=== PATIENT | male | born 2000 | race Caucasian/White ===

== ENCOUNTER 2022-07-13 20:23 | Emergency (ER) | payer MEDICAID, SELFPAY ==
[2022-07-13 20:24] VITALS: BP 124/77; PULSE 100; RESP 16; TEMP 36.8; O2SAT 100; BMI 21.9
--- NOTE | 2022-07-13 20:38 | CT_ITS ---
INDICATION: Pain EXAMINATION: CT ABDOMEN AND PELVIS WITHOUT CONTRAST - CT Abdomen And Pelvis W/O Contrast Injection TECHNIQUE: Helically acquired images were obtained of the abdomen and pelvis without oral or IV contrast. A radiation dose optimization technique was used for this scan. IV Contrast dosage and agent: None. Oral contrast: None. RADIATION DOSAGE (If Supplied By Facility): CTDIvol = ( 6.13 ) mGy, DLP = ( 332.51 ) mGycm COMPARISON: No relevant prior examinations for comparison FINDINGS: LOWER CHEST: Lung bases are clear. No cardiomegaly or pericardial effusion. LIVER: The liver has normal configuration and density given the limitation of noncontrast exam. No focal mass. GALLBLADDER AND BILIARY TREE: No calcified gallstones. No gallbladder distension or wall edema. No intra- or extrahepatic biliary ductal dilation. PANCREAS: No focal cystic or solid mass. SPLEEN: Normal size without focal cystic or solid mass. ADRENAL GLANDS: No nodules. KIDNEYS AND URETERS: Normal renal size and position. No hydronephrosis. PERITONEUM: No ascites or free air. No other fluid collection. BOWEL: No evidence of acute appendicitis. No stomach or bowel distension. No focal inflammatory change. LYMPH NODES: No enlarged mesenteric or retroperitoneal lymph nodes. VESSELS: Aorta is non-dilated. URINARY BLADDER: Bladder is distended, no calcifications or masses noted REPRODUCTIVE ORGANS: No pelvic masses. ABDOMINAL WALL: No discrete abdominal or pelvic wall hernia. BONES: No lytic or blastic abnormality. CT/Abdomen/Pelvis without Cont IMPRESSION: 1. No masses bowel obstruction abscess free fluid free air. 2. No cholelithiasis. 3. No evidence of renal calcification or obstructive uropathy. Electronically Signed: Amaury Tapia MD at 22:12 EST ,
--- NOTE | 2022-07-13 20:39 | EDS_ITS ---
HPI History of Present Illness Chief Complaint: Complaint Narrative Narrative: 21-year-old male presents with his mother because of hematuria that began yesterday evening around 9 PM, almost 24 hours ago. He states that it was a very bright red blood. It continued throughout today. He denies taking any blood thinners. The only daily medication that he takes his insulin for his diabetes. He denies any other bleeding diathesis. He states just before he came it was bright red again, almost as if his urine stream was completely composed of blood. He denies any flank pain. No fevers or chills, no nausea or vomiting currently, but he does state that he thinks he may have had Salmonella last week because he ate a chicken breast that was more on the raw side. No recent strep infections. Essentially, he is presenting with painless hematuria. His diarrhea is not watery and he has had a couple episodes of it, without any blood noticed in his feces. PFSH PFSH Allergy/AdvReac Type Severity Reaction Status Date / Time latex AdvReac Rash Verified 07/13/22 20:25 Social History Smoking Status: Never smoker ROS ROS ED ROS Narrative Constitutional: No fever, no chills. HEENT: No sore throat. No neck pain. No loss of vision. No rhinorrhea. Cardiovascular: No chest pain. No palpitations. No pedal edema. Respiratory: No cough, no shortness of breath. Abdominal: No abdominal pain. No nausea. No vomiting. Positive diarrhea, nonbloody. Genitourinary: No dysuria. Positive hematuria. Musculoskeletal: No myalgias. No arthralgias. Neurologic: No headaches. No dizziness. No lightheadedness. Skin: No rash. No change in color. Psychiatric: No depression. No anxiety. EXAM Physical Exam Narrative Exam Narrative: Afebrile. Vital signs noted. HEENT: Normocephalic. Atraumatic. PERRL, EOMI. Neck soft and supple. No point tenderness or step off. No cyanosis of tongue. Cardiovascular: Regular rate and rhythm. No murmurs, rubs, or gallops appreciated. Respiratory: No tachypnea. Lungs clear to auscultation bilaterally. Gastrointestinal: Abdomen soft, nontender, with normoactive bowel sounds. No rebound or guarding. Neurological: Awake. Alert. Nonfocal, nonlateralizing. Skin: No rash. Normal color. No pallor. No subconjunctival pallor. Musculoskeletal: No pedal edema. Full range of motion extremities. Const Vital Signs: 07/13/22 20:24 07/13/22 22:38 Temperature 98.2 F Temperature Source Temporal Pulse Rate 100 78 Respiratory Rate 16 19 H Blood Pressure 124/77 H 122/83 H Blood Pressure Mean 92 96 Pulse Ox 100 100 Oxygen Delivery Method Room Air Room Air MDM MDM MDM Narrative Medical decision making narrative: Comprehensive work-up was pursued. In the differential diagnosis is ureterolithiasis versus cystitis versus glomerulonephritis. I reviewed his laboratory work. CBC shows normal white count of 6.8, hemoglobin normal at 15.1, hematocrit 44.3. Platelet count is normal at 417. BMP was reviewed and he had a sodium of 133 and a chloride of 96. He was bolused normal saline 1 L intravenously. BUN is normal at 10 with creatinine of 1.08. His glucose states that its 703, but he has a normal anion gap of 9. I went and told the patient that he had an elevated blood sugar, and he took his own blood sugar on his glucometer it was only in the 400s. He states that he gave himself insulin in the edition with IV fluids, his blood sugar will be rechecked prior to discharge. Recheck shows that it is in the 300s, significantly down from the reported 700, and once again he has a normal anion gap. He is comfortable treating his elevated blood sugars at home, and can recheck his blood sugars and give the appropriate amount of insulin as needed. Urinalysis was obtained which shows 0 WBCs and 0 bacteria but greater than 100 RBCs. There is 1000 glucose co nsistent with his diabetes. CT of the abdomen and pelvis was obtained and reviewed. On my interpretation, I see no evidence of hydronephrosis or ureterolithiasis. Review of the radiology report does confirm this that there is no acute process, no inflammation of his colon for his diarrhea. There is no obstruction. At this point in time, I am unsure as to the cause of the patient's gross hemat uria. I do not feel the Morris catheter needs to be inserted to irrigate the bladder as he is still having urination. I strongly advised that he follow-up with urology. He can also follow-up with his primary care physician for further outpatient testing. I do not feel antibiotics are indicated. Return instructions to the emergency department were reviewed. Disposition is discharged home in stable condition. Lab Data Attestation: I reviewed the patient's lab results. Labs: Laboratory Results - last 24 hr 07/13/22 07/13/22 07/13/22 21:01 21:01 21:01 WBC 6.8 RBC 4.74 Hgb 15.1 Hct 44.3 MCV 93.5 MCH 31.9 MCHC 34.1 RDW Std Deviation 42.7 RDW Coeff of Lesia 12.4 Plt Count 417 MPV 8.7 Immature Gran % (Auto) 0.300 Neut % (Auto) 65.8 Lymph % (Auto) 25.6 [place] % (Auto) 6.4 Eos % (Auto) 1.2 Baso % (Auto) 0.7 Absolute Neuts (auto) 4.5 Absolute Lymphs (auto) 1.75 Nucleated RBC % 0 Sodium 133 L Potassium 4.4 Chloride 96 L Carbon Dioxide 28.0 Anion Gap 9 BUN 10 Creatinine 1.08 Estim Creat Clear Calc 106.21 Est GFR (MDRD) Af Amer 110 Est GFR (MDRD) Non-Af 91 BUN/Creatinine Ratio 9.3 L Glucose 703 H* Calcium 9.4 Urine Color Red Urine Clarity Cloudy Urine pH 6.5 Ur Specific [place] 1.010 Urine Protein 30 H Urine Glucose (UA) 1000 H Urine Ketones 5 H Urine Occult Blood 250 H Urine Nitrite Negative Urine Bilirubin Negative Urine Urobilinogen Normal Ur Leukocyte Esterase 25 H Urine RBC > 100 SEEN Urine WBC 0 SEEN Ur Squamous Epith Cells 0-5 SEEN Urine Bacteria 0 SEEN Urine Mucus 0 SEEN Radiography Diagnostic Testing: Clinical Impression(s) from Imaging Studies Abdomen/Pelvis CT 07/13/22 20:38 IMPRESSION: 1. No masses bowel obstruction abscess free fluid free air. 2. No cholelithiasis. 3. No evidence of renal calcification or obstructive uropathy. Electronically Signed: Amaury Tapia MD at 22:12 EST , Discharge Plan Triage Chief Complaint: Complaint ED Provider: Krish Keyes Dx/Rx/DC Orders Clinical Impression: Gross hematuria, Hyperglycemia Instructions: Hematuria: Possible Causes, ED Diabetic Hyperglycemia, ED Hematuria Primary Care Provider: Lary Murphy Referrals: Fab Abraham MD [Med Staff - Active Staff] - 1-2 Days if not improving Lary Murphy MD [Primary Care Provider] - As soon as possible Disposition Disposition: Home, Self Care
[2022-07-13 21:08] LABS: Bacteria 0 SEEN /hpf (None Seen); Mucous, Urine 0 SEEN /hpf (<or=2+); White Blood Cells 0 SEEN /hpf (0-5)
[2022-07-13 21:09] LABS: Color, Urine Red (Yellow); Glucose, Dipstick 1000 mg/dl (Normal); Ketone-Dipstick 5 mg/dl (Negative); Leukocyte Esterase-Dipstick 25 /ul (Negative); Nitrite-Dipstick Negative (Negative); Occult Blood-Urine 250 /ul (Negative); Protein-Dipstick 30 mg/dl (Negative); Urine Bilirubin Dipstick Negative (Negative); Urine Clarity Cloudy (Clear); Urine Urobilinogen Normal (Normal); Urine pH 6.5 (5.0 - 8.0)
[2022-07-13 21:11] LABS: Absolute Lymphocyte Count 1.75 X10^3/uL (0.83-4.51); Absolute Neutrophil Count 4.5 X10^3/uL (2.0-7.7); Basophil# 0.05 X10^3/uL; Basophil% 0.7 % (0-1); Eosinophil# 0.08 X10^3/uL; Eosinophils% 1.2 % (0-5); Hematocrit 44.3 % (40-54); Hemoglobin 15.1 g/dL (13.0-16.5); Lymphocyte # 1.75 X10^3/ul (0.83-4.51); Lymphocyte % 25.6 % (19-41); Mean Corp Hgb Conc 34.1 g/dL (32-36); Mean Corpuscular Hgb 31.9 pg (27.0-32.0); Mean Corpuscular Volume 93.5 fL (80-94); Mean Platelet Vol. 8.7 fl (6.2-12.0); Monocyte# 0.44 X10^3/uL; Monocyte% 6.4 % (0-10); NRBC Flagged by Analyzer 0 % (0-5); Neutrophil % 65.8 % (47-70); Platelet Count 417 K/mm3 (150-450); RBC Distribution Width CV 12.4 % (11.6-14.6); RBC Distribution Width SD 42.7 fl (35.1-43.9); Red Blood Count 4.74 M/mm3 (4.6-6.2); White Blood Count 6.8 K/mm3 (4.4-11.0)
[2022-07-13 21:31] LABS: Red Blood Cells-Urine > 100 SEEN /hpf (0-5); Squamous Epithelial Cells - UA 0-5 SEEN /hpf (0-5)
[2022-07-13 21:51] LABS: Anion Gap 9 (5-15); BUN 10 mg/dL (7-18); BUN/Creat Ratio 9.3 RATIO (10-20); Calcium,Total 9.4 mg/dL (8.5-10.1); Chloride 96 mmol/L (98-107); Creatinine, Serum 1.08 mg/dL (0.70-1.30); EST Glomerular Filtration Rate 91 mL/min (>60); Est Glom Filt Rate - Afr Amer 110 mL/min (>60); Estimated Creatinine Clearance 106.21 ml/min; Glucose 703 mg/dL (74-106); Potassium 4.4 mmol/L (3.5-5.1); Sodium Level 133 mmol/L (136-145)
[2022-07-13] MEDS: 0.9% Normal Saline 1,000 ML 999 ML IV (22:00)
[2022-07-13 22:38] VITALS: BP 122/83; PULSE 78; RESP 19; O2SAT 100
[2022-07-13 23:16] LABS: Bedside Glucose 344 mg/dL (74-106)
== END 2022-07-13 23:06 | disposition home or self-care (01) ==
PROVIDERS: Emergency Provider Emergency Medicine; PCP Pediatrics; Visit Provider Emergency Medicine
DX: R31.0 Gross hematuria (principal); R73.9 Hyperglycemia, unspecified
CPT/HCPCS: 74176; 80048; 81001; 82962; 85025; 99283; J7030; J7040; A4216